=== PATIENT | male | born 1955 | race Hispanic/Latino ===

== ENCOUNTER 2016-12-31 19:18 | Emergency (ER) | payer OTHER ==
[2016-12-31 19:26] VITALS: BP 146/78; PULSE 86; RESP 18; TEMP 98.4; O2SAT 100
--- NOTE | 2016-12-31 19:41 | C.PDOC ---
History Of Present Illness Patient presents to the ER with a complaint of constipation for the past 6 days. Patient states he tried taking miralax, enema, coffee, and prune juice at home with no relief to constipation. Denies fever, chills, or abdominal pain. Time Seen by Provider: 12/31/16 19:41 Chief Complaint (Nursing): GI Problem History Per: Patient History/Exam Limitations: no limitations Onset/Duration Of Symptoms: Days (6) Current Symptoms Are (Timing): Still Present Severity: None Pain Scale Rating Of: 0 Radiation Of Pain To:: None Associated Symptoms: denies: Fever, Chills Exacerbating Factors: None Alleviating Factors: None Last Bowel Movement: Days Ago (6) Recent travel outside of the [place]: No Past Medical History Reviewed: Historical Data, Nursing Documentation, Vital Signs Vital Signs: Last Vital Signs Temp 98.4 F 12/31/16 19:23 Pulse 86 12/31/16 19:23 Resp 18 12/31/16 19:23 BP 146/78 12/31/16 19:23 Pulse Ox 100 12/31/16 20:01 - Medical History PMH: Anxiety, Depression, HTN Surgical History: No Surg Hx Family History: States: Unknown Family Hx - Social History Hx Alcohol Use: No Hx Substance Use: No - Immunization History Hx Tetanus Toxoid Vaccination: No Hx Influenza Vaccination: No Hx Pneumococcal Vaccination: No Review Of Systems Constitutional: Negative for: Fever, Chills Gastrointestinal: Positive for: Constipation. Negative for: Abdominal Pain Physical Exam - Physical Exam Appears: Non-toxic Skin: Warm, Dry, Other (Psoriasis on his back) Oral Mucosa: Moist Chest: Symmetrical, No Tenderness Cardiovascular: Rhythm Regular, No Murmur Respiratory: No Rales, No Rhonchi, No Wheezing Gastrointestinal/Abdominal: Bowel Sounds (Good), Soft, No Tenderness Rectal: No Tenderness, Other (Very large hardened stool mass in rectal vault) Neurological/Psych: Oriented x3 ED Course And Treatment O2 Sat by Pulse Oximetry: 100 Pulse Ox Interpretation: Normal Progress Note: Successfully manually disimpacted very large amounts of hardened stool. Pt with relief Reevaluation Time: 20:03 Reassessment Condition: Improved Disposition Counseled Patient/Family Regarding: Studies Performed, Diagnosis, Need For Followup - Disposition Referrals: [facility] [Outside] Disposition: HOME/ ROUTINE Disposition Time: 19:41 Condition: FAIR Instructions: Constipation (DC) - Clinical Impression Clinical Impression: Constipation - Scribe Statement The provider has reviewed the documentation as recorded by the Scribe Akira Aranda All medical record entries made by the Avniibe were at my direction and personally dictated by me. I have reviewed the chart and agree that the record accurately reflects my personal performance of the history, physical exam, medical decision making, and the department course for this patient. I have also personally directed, reviewed, and agree with the discharge instructions and disposition.
[2016-12-31] MEDS ORDERED: Magnesium Citrate Oral SOL (300 ml) PO ONE (20:04)
[2016-12-31] MEDS ORDERED: Magnesium Citrate Oral SOL (300 ml) ONE (20:13)
== END 2016-12-31 20:19 | disposition home or self-care (01) ==
LOC: C.ER 19:18
DX: K59.00 Constipation, unspecified (principal)

== ENCOUNTER 2017-05-26 13:57 | Emergency (ER) | payer OTHER ==
[2017-05-26 14:29] VITALS: BP 124/74; PULSE 85; RESP 18; TEMP 97.3; O2SAT 100
[2017-05-26] MEDS ORDERED: Peg-Electrolyte Oral Soln 4L (Golytely) PO STA (15:47)
--- NOTE | 2017-05-26 16:20 | RAD ---
PROCEDURE: Radiographs of the chest and abdomen (obstructive series) HISTORY: CONSTIPATION COMPARISON: None available. TECHNIQUE: AP radiograph of the chest, with upright and supine radiographs of the abdomen. FINDINGS: CHEST: Heart size appears within normal limits. Atherosclerotic calcifications of the aortic knob. Biapical pleural thickening. Hyperinflation may be seen in the setting of COPD. No focal consolidation. No pleural effusion. No pneumothorax. Please note that chest x-ray has limited sensitivity for the detection of pulmonary masses. ABDOMEN AND PELVIS: Nonobstructive bowel gas pattern. No definite free air. Severe diffuse constipation. Osseous demineralization. Extensive degenerative changes. IMPRESSION: Biapical pleural thickening. Hyperinflation may be seen in the setting of COPD. Severe diffuse constipation.
--- NOTE | 2017-05-26 17:19 | C.PDOC ---
Time Seen by Provider: 05/26/17 15:02 Chief Complaint (Nursing): GI Problem Past Medical History Vital Signs: Last Vital Signs Temp 97.3 F L 05/26/17 14:28 Pulse 85 05/26/17 14:28 Resp 18 05/26/17 14:28 BP 124/74 05/26/17 14:28 Pulse Ox 100 05/26/17 14:28 - Medical History PMH: Anxiety, Depression, HTN Family History: States: Unknown Family Hx - Social History Hx Alcohol Use: No Hx Substance Use: No - Immunization History Hx Tetanus Toxoid Vaccination: No Hx Influenza Vaccination: No Hx Pneumococcal Vaccination: No ED Course And Treatment O2 Sat by Pulse Oximetry: 100 Disposition Counseled Patient/Family Regarding: Studies Performed, Diagnosis, Need For Followup - Disposition Referrals: Piter Lane MD [Medical Doctor] - Disposition: HOME/ ROUTINE Disposition Time: 17:15 Condition: STABLE Additional Instructions: CONTINUE DRINKING GOLYTELY AT HOME UNTIL YOU HAVE LARGE BOWEL MOVEMENT DRINK PLENTY OF FLUIDS INCREASE FIBER IN YOUR DIET FOLLOW UP IN MEDICAL CLINIC OR WITH YOUR DOCTOR IN 1-2 DAYS RETURN ER IF SYMPTOMS WORSEN Prescriptions: Docusate [Colace] 100 mg PO DAILY #30 cap Magnesium Citrate [Citrate of Mag] 300 ml PO ONCE PRN #1 bottle PRN Reason: Constipation Instructions: Constipation (ED), High Fiber Diet (ED) Print Language: GEORGIAN - Clinical Impression Clinical Impression: Constipation
--- NOTE | 2017-05-26 17:21 | C.PDOC ---
History Of Present Illness 61 y/o male c/o constipation, no bowel movement for 5 days. Patient reports to history of chronic constipation. Denies nausea, vomiting, abdominal pain, rectal bleeding or pain. Time Seen by Provider: 05/26/17 15:02 Chief Complaint (Nursing): GI Problem History Per: Patient History/Exam Limitations: no limitations Onset/Duration Of Symptoms: Days Current Symptoms Are (Timing): Still Present Recent travel outside of the [place]: No Past Medical History Reviewed: Historical Data, Nursing Documentation, Vital Signs Vital Signs: Last Vital Signs Temp 97.3 F L 05/26/17 14:28 Pulse 85 05/26/17 14:28 Resp 18 05/26/17 14:28 BP 124/74 05/26/17 14:28 Pulse Ox 100 05/26/17 17:22 - Medical History PMH: Anxiety, Depression, HTN Family History: States: Unknown Family Hx - Social History Hx Alcohol Use: No Hx Substance Use: No - Immunization History Hx Tetanus Toxoid Vaccination: No Hx Influenza Vaccination: No Hx Pneumococcal Vaccination: No Review Of Systems Except As Marked, All Systems Reviewed And Found Negative. Constitutional: Negative for: Fever, Chills Cardiovascular: Negative for: Chest Pain Respiratory: Negative for: Cough, Shortness of Breath, Wheezing Gastrointestinal: Positive for: Constipation. Negative for: Nausea, Vomiting, Abdominal Pain, Rectal Pain Skin: Negative for: Rash Physical Exam - Physical Exam Appears: Non-toxic, No Acute Distress, Other (Comfortable) Skin: Normal Color, Warm, Dry Head: Atraumatic, Normacephalic Oral Mucosa: Moist Chest: Symmetrical Cardiovascular: Rhythm Regular Respiratory: Normal Breath Sounds, No Rales, No Rhonchi, No Wheezing Gastrointestinal/Abdominal: Soft, No Tenderness, Distention (mild), Other (no surgical scars) Back: Normal Inspection Extremity: Normal ROM, Capillary Refill (< 2 sec.) Neurological/Psych: Oriented x3, Normal Speech, Normal Cognition ED Course And Treatment O2 Sat by Pulse Oximetry: 100 (RA) Pulse Ox Interpretation: Normal - Other Rad Obstructive Series X-Ray X-Ray: Viewed By Me, Read By Radiologist Interpretation: constipation, no air fluid levels Progress Note: Obstructive series ordered. Golytely given in the ER, and patient will take home and continue drinking. On re-eval, patient is comfortable , in no acute distress. Advised f/u with PMD/clinic. Disposition - Disposition Referrals: Piter Lane MD [Medical Doctor] - Disposition Time: 17:15 Additional Instructions: CONTINUE DRINKING GOLYTELY AT HOME UNTIL YOU HAVE LARGE BOWEL MOVEMENT DRINK PLENTY OF FLUIDS INCREASE FIBER IN YOUR DIET FOLLOW UP IN MEDICAL CLINIC OR WITH YOUR DOCTOR IN 1-2 DAYS RETURN ER IF SYMPTOMS WORSEN Prescriptions: Docusate [Colace] 100 mg PO DAILY #30 cap Magnesium Citrate [Citrate of Mag] 300 ml PO ONCE PRN #1 bottle PRN Reason: Constipation Instructions: Constipation (ED), High Fiber Diet (ED) Forms: [employer] (Austrian) Print Language: BULGARIAN - Clinical Impression Clinical Impression: Constipation - Scribe Statement The provider has reviewed the documentation as recorded by the Scribe SM All medical record entries made by the Scribe were at my direction and personally dictated by me. I have reviewed the chart and agree that the record accurately reflects my personal performance of the history, physical exam, medical decision making, and the department course for this patient. I have also personally directed, reviewed, and agree with the discharge instructions and disposition.
== END 2017-05-26 17:41 | disposition home or self-care (01) ==
LOC: C.ER 13:57
DX: K59.00 Constipation, unspecified (principal); I10 Essential (primary) hypertension